=== PATIENT | female | born 1995 | race Hispanic/Latino ===

== ENCOUNTER 2025-03-08 06:03 | Emergency (ER) | payer SELFPAY ==
[~2025-03-08] VITALS: Ht 167.6 cm; Wt 73.5 kg
[2025-03-08 06:13] VITALS: RESP 18
[2025-03-08] MEDS: KETOROLAC TROMETHAMINE 60 MG/2 ML VIAL IM ONE (08:39)
[2025-03-08] MEDS ORDERED: CYCLOBENZAPRINE10 MG PO (08:46)
[2025-03-08 09:51] VITALS: PULSE 18; TEMP 98; O2SAT 100
== END 2025-03-08 09:54 | disposition home or self-care (01) ==
LOC: FSED 06:36
DX: S00.83XA Contusion of other part of head, initial encounter (principal); S00.12XA Contusion of left eyelid and periocular area, initial encounter; S16.1XXA Strain of muscle, fascia and tendon at neck level, initial encounter; Y04.0XXA Assault by unarmed brawl or fight, initial encounter; Y92.89 Other specified places as the place of occurrence of the external cause; F17.210 Nicotine dependence, cigarettes, uncomplicated
CPT/HCPCS: 70450; 70486; 72125; J1885; 99284